=== PATIENT | female | born 1940 | race Caucasian/White ===

== ENCOUNTER 2019-02-22 16:38 | Inpatient (IN) ==
[2019-02-22] MEDS ORDERED: Ipratropium/Albuterol Neb 3 ML IH PRN (19:26)
[2019-02-22] MEDS ORDERED: Mag Hydrox/Al Hydrox/Simeth 30 ML UDC PO PRN (19:33)
[2019-02-22] MEDS ORDERED: Melatonin 3 MG TABLET PO PRN (19:34)
[2019-02-22] MEDS ORDERED: Menthol 9.1 MG LOZENGE PO PRN (19:35)
[2019-02-22] MEDS ORDERED: Furosemide 40 MG TABLET PO SCH (21:00)
[2019-02-22] MEDS ORDERED: VANCOMYCIN HCL 125 MG PO SCH (21:00)
[2019-02-22] MEDS: Budesonide/Formoterol 80/4.5 1 PUFF INH IH SCH (21:11)
[2019-02-22] MEDS: Acetaminophen 325 MG TABLET PO PRN (22:10)
[2019-02-23 05:58] LABS: Basophils % 0.3 %; Eosinophils # 0.1 K/mcL (0.0-0.6); Eosinophils % 1.5 %; Hematocrit 31.2 % (35.3-44.9); Hemoglobin 9.7 g/dL (11.5-15.4); Immature Granulocytes % 6.1 % (0-4); Lymphocytes # 1.4 K/mcL (0.6-4.6); Mean Corpuscular HGB Conc 31.1 g/dL (31.6-35.5); Mean Corpuscular Hemoglobin 27.2 pg (28.0-33.3); Mean Corpuscular Volume 87.4 fL (83.0-100.0); Mean Platelet Volume 10.2 fL (9.4-12.4); Neutrophils # 6.4 K/mcL (1.6-8.9); Platelet Count 324 K/mcL (140-400); Red Blood Count 3.57 M/mcL (3.82-4.97); Red Cell Distribution Width 15.6 % (11.5-14.5); Segmented Neutrophils % 67.1 %; White Blood Count 9.6 K/mcL (4.3-11.1)
[2019-02-23 06:26] LABS: Calcium 8.1 mg/dL (8.6-10.3); Potassium 3.9 mEq/L (3.5-5.1)
[2019-02-23] MEDS: Budesonide/Formoterol 80/4.5 1 PUFF INH IH SCH ×2 (08:17→19:35)
[2019-02-23] MEDS: Furosemide 40 MG TABLET PO SCH ×2 (08:18→16:43)
[2019-02-23] MEDS: Lactobacillus 1 EACH CAP.SPRINK PO SCH ×2 (08:18→19:33)
[2019-02-23] MEDS: Aspirin Enteric Coated 81 MG Tablet PO SCH (08:18)
[2019-02-23] MEDS: amLODIPine 5 MG TABLET PO SCH (08:18)
[2019-02-23] MEDS: *HR* Rivaroxaban 10 MG TABLET PO SCH (08:18)
[2019-02-23] MEDS: Metoprolol XL (24 HR) Succ 50 MG TAB.ER.24H PO SCH (08:19)
[2019-02-23] MEDS: VANCOMYCIN HCL 125 MG PO SCH ×5 (08:19→19:34)
[2019-02-23] MEDS: Isosorbide MONOnitrate (24 HR) 60 MG TAB.ER.24H PO SCH (08:19)
[2019-02-23] MEDS: Acetaminophen 325 MG TABLET PO PRN (19:33)
[2019-02-23] MEDS: Ascorbic Acid 500 MG TABLET PO SCH (19:33)
[2019-02-24] MEDS: Furosemide 40 MG TABLET PO SCH ×2 (05:27→16:23)
[2019-02-24 05:39] LABS: Alanine Aminotransferase 21 Units/L (7-52); Albumin 2.5 g/dL (3.5-5.7); Alkaline Phosphatase 83 Units/L (34-104); Aspartate Amino Transferase 37 Units/L (13-39); BUN/Creatinine Ratio 15 (6-26); Bilirubin,Total 0.4 mg/dL (0.3-1.0); Blood Urea Nitrogen 14 mg/dL (8-23); Calcium 8.1 mg/dL (8.6-10.3); Carbon Dioxide 35 mEq/L (23-29); Chloride 96 mEq/L (98-107); Globulin 2.4 g/dL (2.4-3.5); Glucose 116 mg/dL (70-105); Osmolality,Calculated 287 (280-300); Potassium 3.7 mEq/L (3.5-5.1); Sodium 138 mEq/L (136-145); Total Protein 4.9 g/dL (6.4-8.9); eGFR For African Americans > 60 (> 60); eGFR For Non-African Americans 58 (> 60)
[2019-02-24] MEDS: Acetaminophen 325 MG TABLET PO PRN ×2 (06:23→21:31)
[2019-02-24] MEDS: Budesonide/Formoterol 80/4.5 1 PUFF INH IH SCH ×2 (07:55→21:31)
[2019-02-24] MEDS: Lactobacillus 1 EACH CAP.SPRINK PO SCH ×2 (08:06→21:30)
[2019-02-24] MEDS: *HR* Rivaroxaban 10 MG TABLET PO SCH (08:06)
[2019-02-24] MEDS: amLODIPine 5 MG TABLET PO SCH (08:06)
[2019-02-24] MEDS: Isosorbide MONOnitrate (24 HR) 60 MG TAB.ER.24H PO SCH (08:06)
[2019-02-24] MEDS: Metoprolol XL (24 HR) Succ 50 MG TAB.ER.24H PO SCH (08:06)
[2019-02-24] MEDS: VANCOMYCIN HCL 125 MG PO SCH ×4 (08:06→21:30)
[2019-02-24] MEDS: Ascorbic Acid 500 MG TABLET PO SCH ×2 (08:06→21:31)
[2019-02-24] MEDS: Aspirin Enteric Coated 81 MG Tablet PO SCH (08:06)
[2019-02-24] MEDS: Psyllium 1 PACKET POWD.PACK PO SCH (08:07)
[2019-02-24 11:37] LABS: % Iron Saturation 8 % (15-50); Iron 18 mcg/dL (50-170); Transferrin 163 mg/dL (203-362)
[2019-02-24 12:03] LABS: Vitamin B12 550 pg/mL (250-1100); Vitamin D 25 Hydroxy 10 ng/mL (30-80)
[2019-02-24] MEDS: Nitroglycerin 0.4 MG TAB.SUBL SL PRN ×2 (15:02→15:19)
[2019-02-25] MEDS: Furosemide 40 MG TABLET PO SCH ×2 (06:16→16:04)
[2019-02-25] MEDS: Ascorbic Acid 500 MG TABLET PO SCH ×2 (08:15→21:03)
[2019-02-25] MEDS: amLODIPine 5 MG TABLET PO SCH (08:15)
[2019-02-25] MEDS: Psyllium 1 PACKET POWD.PACK PO SCH (08:15)
[2019-02-25] MEDS: Isosorbide MONOnitrate (24 HR) 60 MG TAB.ER.24H PO SCH (08:15)
[2019-02-25] MEDS: Acetaminophen 325 MG TABLET PO PRN ×2 (08:15→21:05)
[2019-02-25] MEDS: Metoprolol XL (24 HR) Succ 50 MG TAB.ER.24H PO SCH (08:15)
[2019-02-25] MEDS: Aspirin Enteric Coated 81 MG Tablet PO SCH (08:15)
[2019-02-25] MEDS: *HR* Rivaroxaban 10 MG TABLET PO SCH (08:15)
[2019-02-25] MEDS: Lactobacillus 1 EACH CAP.SPRINK PO SCH ×2 (08:15→21:03)
[2019-02-25] MEDS: VANCOMYCIN HCL 125 MG PO SCH ×4 (08:16→21:04)
[2019-02-25] MEDS: Budesonide/Formoterol 80/4.5 1 PUFF INH IH SCH ×2 (08:50→20:25)
[2019-02-25] MEDS: Nitroglycerin 0.4 MG TAB.SUBL SL PRN ×4 (11:29→12:13)
[2019-02-25 11:51] LABS: Basophils % 0.2 %; Eosinophils % 0.2 %; Hematocrit 30.6 % (35.3-44.9); Hemoglobin 9.7 g/dL (11.5-15.4); Immature Granulocytes % 1.2 % (0-4); Lymphocytes % 5.2 %; Mean Corpuscular HGB Conc 31.7 g/dL (31.6-35.5); Mean Corpuscular Hemoglobin 27.2 pg (28.0-33.3); Mean Platelet Volume 9.9 fL (9.4-12.4); Monocytes # 1.5 K/mcL (0.0-1.3); Neutrophils # 16.2 K/mcL (1.6-8.9); Platelet Count 264 K/mcL (140-400); Red Blood Count 3.56 M/mcL (3.82-4.97); Red Cell Distribution Width 15.9 % (11.5-14.5); Segmented Neutrophils % 85.2 %
[2019-02-25 11:59] LABS: BUN/Creatinine Ratio 14 (6-26); Blood Urea Nitrogen 12 mg/dL (8-23); Carbon Dioxide 36 mEq/L (23-29); Chloride 91 mEq/L (98-107); Glucose 109 mg/dL (70-105); Magnesium 1.3 mg/dL (1.6-2.6); Osmolality,Calculated 278 (280-300); Potassium 3.5 mEq/L (3.5-5.1); Sodium 134 mEq/L (136-145); eGFR For African Americans > 60 (> 60); eGFR For Non-African Americans > 60 (> 60)
[2019-02-25] MEDS: levoFLOXacin 750 MG/150 ML 750 MG/150 ML BAG IVPB SCH (15:56)
[2019-02-26 06:10] LABS: Basophils % 0.3 %; Eosinophils # 0.1 K/mcL (0.0-0.6); Eosinophils % 0.7 %; Hematocrit 27.8 % (35.3-44.9); Hemoglobin 8.9 g/dL (11.5-15.4); Immature Granulocytes % 1.2 % (0-4); Lymphocytes % 8.9 %; Mean Corpuscular Hemoglobin 27.6 pg (28.0-33.3); Mean Corpuscular Volume 86.1 fL (83.0-100.0); Mean Platelet Volume 10.2 fL (9.4-12.4); Monocytes # 0.9 K/mcL (0.0-1.3); Monocytes % 8.1 %; Neutrophils # 8.9 K/mcL (1.6-8.9); Platelet Count 226 K/mcL (140-400); Red Blood Count 3.23 M/mcL (3.82-4.97); Red Cell Distribution Width 15.8 % (11.5-14.5); Segmented Neutrophils % 80.8 %; White Blood Count 11.1 K/mcL (4.3-11.1)
[2019-02-26] MEDS: Furosemide 40 MG TABLET PO SCH ×2 (06:30→17:07)
[2019-02-26] MEDS: Lactobacillus 1 EACH CAP.SPRINK PO SCH ×2 (07:42→20:12)
[2019-02-26] MEDS: Ascorbic Acid 500 MG TABLET PO SCH ×2 (07:42→20:12)
[2019-02-26] MEDS: VANCOMYCIN HCL 125 MG PO SCH ×4 (07:42→20:13)
[2019-02-26] MEDS: Isosorbide MONOnitrate (24 HR) 60 MG TAB.ER.24H PO SCH (07:43)
[2019-02-26] MEDS: Aspirin Enteric Coated 81 MG Tablet PO SCH (07:43)
[2019-02-26] MEDS: Psyllium 1 PACKET POWD.PACK PO SCH (07:43)
[2019-02-26] MEDS: Metoprolol XL (24 HR) Succ 50 MG TAB.ER.24H PO SCH (07:43)
[2019-02-26] MEDS: *HR* Rivaroxaban 10 MG TABLET PO SCH (07:43)
[2019-02-26] MEDS: amLODIPine 5 MG TABLET PO SCH (07:43)
[2019-02-26] MEDS: levoFLOXacin 750 MG/150 ML 750 MG/150 ML BAG IVPB SCH (09:43)
[2019-02-26] MEDS: Budesonide/Formoterol 80/4.5 1 PUFF INH IH SCH ×2 (09:55→20:25)
[2019-02-26] MEDS ORDERED: Ergocalciferol (VIT D2) 50,000 UNIT (1.25MG) CAP PO SCH (12:00)
[2019-02-26] MEDS ORDERED: Magnesium Oxide 400 MG TABLET PO SCH (13:00)
[2019-02-26] MEDS ORDERED: Racepinephrine Neb 0.5 ML VIAL IH ONE (13:32)
[2019-02-26] MEDS: Magnesium Oxide 400 MG TABLET PO SCH (20:11)
[2019-02-26] MEDS: Acetaminophen 325 MG TABLET PO PRN (20:11)
[2019-02-27] MEDS: Furosemide 40 MG TABLET PO SCH ×2 (06:05→17:42)
[2019-02-27 07:45] LABS: Hematocrit 31.3 % (35.3-44.9); Hemoglobin 9.9 g/dL (11.5-15.4); Mean Corpuscular HGB Conc 31.6 g/dL (31.6-35.5); Mean Corpuscular Hemoglobin 27.5 pg (28.0-33.3); Mean Corpuscular Volume 86.9 fL (83.0-100.0); Mean Platelet Volume 10.2 fL (9.4-12.4); Platelet Count 280 K/mcL (140-400); Red Cell Distribution Width 15.9 % (11.5-14.5)
[2019-02-27 07:55] LABS: BUN/Creatinine Ratio 11 (6-26); Blood Urea Nitrogen 11 mg/dL (8-23); Calcium 8.3 mg/dL (8.6-10.3); Carbon Dioxide 35 mEq/L (23-29); Chloride 92 mEq/L (98-107); Glucose 101 mg/dL (70-105); Magnesium 1.6 mg/dL (1.6-2.6); Osmolality,Calculated 280 (280-300); Potassium 3.9 mEq/L (3.5-5.1); Sodium 135 mEq/L (136-145); eGFR For African Americans > 60 (> 60); eGFR For Non-African Americans 53 (> 60)
[2019-02-27] MEDS: Iron Sucrose Complex 200 MG in 0.9 % Sodium Chloride 100 ML IVPB SCH (09:06)
[2019-02-27] MEDS: VANCOMYCIN HCL 125 MG PO SCH ×4 (09:31→21:12)
[2019-02-27] MEDS: Isosorbide MONOnitrate (24 HR) 60 MG TAB.ER.24H PO SCH (09:32)
[2019-02-27] MEDS: Lactobacillus 1 EACH CAP.SPRINK PO SCH ×2 (09:32→21:12)
[2019-02-27] MEDS: Metoprolol XL (24 HR) Succ 50 MG TAB.ER.24H PO SCH (09:32)
[2019-02-27] MEDS: *HR* Rivaroxaban 10 MG TABLET PO SCH (09:32)
[2019-02-27] MEDS: Magnesium Oxide 400 MG TABLET PO SCH ×2 (09:32→21:12)
[2019-02-27] MEDS: Ascorbic Acid 500 MG TABLET PO SCH ×2 (09:32→21:13)
[2019-02-27] MEDS: Psyllium 1 PACKET POWD.PACK PO SCH (09:33)
[2019-02-27] MEDS: Aspirin Enteric Coated 81 MG Tablet PO SCH (09:33)
[2019-02-27] MEDS: Budesonide/Formoterol 80/4.5 1 PUFF INH IH SCH ×2 (11:03→20:17)
[2019-02-27] MEDS: levoFLOXacin 750 MG/150 ML 750 MG/150 ML BAG IVPB SCH (11:33)
[2019-02-27] MEDS: Acetaminophen 325 MG TABLET PO PRN (21:13)
[2019-02-28] MEDS: Furosemide 40 MG TABLET PO SCH ×2 (06:50→16:52)
[2019-02-28] MEDS: Cholecalciferol (D-3) 1,000 UNIT (25MCG) TABLET PO SCH (08:06)
[2019-02-28] MEDS: VANCOMYCIN HCL 125 MG PO SCH ×4 (08:07→21:10)
[2019-02-28] MEDS: *HR* Rivaroxaban 10 MG TABLET PO SCH (08:08)
[2019-02-28] MEDS: Lactobacillus 1 EACH CAP.SPRINK PO SCH ×2 (08:09→21:10)
[2019-02-28] MEDS: Metoprolol XL (24 HR) Succ 50 MG TAB.ER.24H PO SCH (08:09)
[2019-02-28] MEDS: Isosorbide MONOnitrate (24 HR) 60 MG TAB.ER.24H PO SCH (08:09)
[2019-02-28] MEDS: Ascorbic Acid 500 MG TABLET PO SCH ×2 (08:09→21:10)
[2019-02-28] MEDS: Magnesium Oxide 400 MG TABLET PO SCH ×2 (08:09→21:10)
[2019-02-28] MEDS: levoFLOXacin 750 MG/150 ML 750 MG/150 ML BAG IVPB SCH (08:10)
[2019-02-28] MEDS: Aspirin Enteric Coated 81 MG Tablet PO SCH (08:10)
[2019-02-28] MEDS: Psyllium 1 PACKET POWD.PACK PO SCH (08:11)
[2019-02-28] MEDS: Iron Sucrose Complex 200 MG in 0.9 % Sodium Chloride 100 ML IVPB SCH (09:32)
[2019-02-28] MEDS: Budesonide/Formoterol 80/4.5 1 PUFF INH IH SCH ×2 (11:06→21:10)
[2019-02-28] MEDS: Acetaminophen 325 MG TABLET PO PRN (21:10)
[2019-03-01] MEDS: Furosemide 40 MG TABLET PO SCH (07:04)
[2019-03-01] MEDS: Cholecalciferol (D-3) 1,000 UNIT (25MCG) TABLET PO SCH (08:51)
[2019-03-01] MEDS: Ascorbic Acid 500 MG TABLET PO SCH (08:51)
[2019-03-01] MEDS: VANCOMYCIN HCL 125 MG PO SCH ×2 (08:51→13:22)
[2019-03-01] MEDS: Magnesium Oxide 400 MG TABLET PO SCH (08:52)
[2019-03-01] MEDS: Isosorbide MONOnitrate (24 HR) 60 MG TAB.ER.24H PO SCH (08:52)
[2019-03-01] MEDS: Metoprolol XL (24 HR) Succ 50 MG TAB.ER.24H PO SCH (08:52)
[2019-03-01] MEDS: *HR* Rivaroxaban 10 MG TABLET PO SCH (08:52)
[2019-03-01] MEDS: levoFLOXacin 750 MG/150 ML 750 MG/150 ML BAG IVPB SCH ×2 (08:53→09:13)
[2019-03-01] MEDS: Lactobacillus 1 EACH CAP.SPRINK PO SCH (08:53)
[2019-03-01] MEDS: Aspirin Enteric Coated 81 MG Tablet PO SCH (08:53)
[2019-03-01] MEDS: Psyllium 1 PACKET POWD.PACK PO SCH (08:53)
[2019-03-01 09:08] VITALS: BP 134/82
[2019-03-01] MEDS: Budesonide/Formoterol 80/4.5 1 PUFF INH IH SCH (09:54)
[2019-03-01] MEDS: Iron Sucrose Complex 200 MG in 0.9 % Sodium Chloride 100 ML IVPB SCH (12:31)
[2019-03-01] MEDS ORDERED: levoFLOXacin 500 MG TABLET PO SCH (12:35)
[2019-03-01] MEDS ORDERED: Albuterol 2.5 MG/3 ML NEBULIZER IH SCH (15:00)
[2019-03-01] MEDS ORDERED: NON-FORMULARY MEDICATION 1 EACH EACH (Fluticasone Propion/Salmeterol [Wixela 250-50 Inhub] IH SCH (21:00)
[2019-03-02] MEDS ORDERED: levoFLOXacin 500 MG TABLET PO SCH (09:00)
== END 2019-03-01 15:31 | disposition home health service (06) | DRG 945 ==
LOC: INPGRE 17:41

== ENCOUNTER 2019-05-08 11:11 | Inpatient (IN) ==
[2019-05-08] MEDS ORDERED: Nitroglycerin 0.4 MG TAB.SUBL SL PRN (21:49)
[2019-05-08] MEDS ORDERED: Albuterol 2.5 MG/3 ML NEBULIZER IH PRN (22:46)
[2019-05-08] MEDS: Vancomycin Oral Soln 125 MG/2.5 ML UDC PO SCH (23:12)
[2019-05-08] MEDS: Magnesium Oxide 400 MG TABLET PO SCH (23:12)
[2019-05-09] MEDS ORDERED: Ipratropium/Albuterol Neb 3 ML IH PRN
[2019-05-09 06:10] LABS: Basophils % 0.2 %; Eosinophils # 0.1 K/mcL (0.0-0.6); Eosinophils % 0.8 %; Hematocrit 33.8 % (35.3-44.9); Hemoglobin 10.3 g/dL (11.5-15.4); Immature Granulocytes % 1.7 % (0-4); Lymphocytes # 1.2 K/mcL (0.6-4.6); Mean Corpuscular HGB Conc 30.5 g/dL (31.6-35.5); Mean Corpuscular Hemoglobin 27.9 pg (28.0-33.3); Mean Corpuscular Volume 91.6 fL (83.0-100.0); Mean Platelet Volume 11.1 fL (9.4-12.4); Monocytes # 0.6 K/mcL (0.0-1.3); Monocytes % 7.4 %; Neutrophils # 6.4 K/mcL (1.6-8.9); Platelet Count 200 K/mcL (140-400); Red Blood Count 3.69 M/mcL (3.82-4.97); Red Cell Distribution Width 15.4 % (11.5-14.5); Segmented Neutrophils % 75.9 %; White Blood Count 8.4 K/mcL (4.3-11.1)
[2019-05-09 06:33] LABS: BUN/Creatinine Ratio 20 (6-26); Blood Urea Nitrogen 14 mg/dL (8-23); Calcium 8.7 mg/dL (8.6-10.3); Carbon Dioxide 43 mEq/L (23-29); Chloride 92 mEq/L (98-107); Glucose 83 mg/dL (70-105); Osmolality,Calculated 286 (280-300); Potassium 3.7 mEq/L (3.5-5.1); Sodium 138 mEq/L (136-145); eGFR For African Americans > 60 (> 60); eGFR For Non-African Americans > 60 (> 60)
[2019-05-09 07:39] LABS: VBG HCO3 42 mEq/L (21-27); VBG PCO2 62 mmHg (41-51); VBG PH 7.44 pH Units (7.32-7.42); VBG PO2 64 mmHg (25-50)
[2019-05-09] MEDS ORDERED: Furosemide 40 MG TABLET PO SCH (09:00)
[2019-05-09] MEDS: *HR* Rivaroxaban 10 MG TABLET PO SCH (09:58)
[2019-05-09] MEDS: Metoprolol XL (24 HR) Succ 50 MG TAB.ER.24H PO SCH (09:58)
[2019-05-09] MEDS: Aspirin Enteric Coated 81 MG Tablet PO SCH (09:58)
[2019-05-09] MEDS: Magnesium Oxide 400 MG TABLET PO SCH ×3 (09:59→20:06)
[2019-05-09] MEDS: metOLazone 5 MG TABLET PO STA ×2 (09:59→10:08)
[2019-05-09] MEDS: Isosorbide MONOnitrate (24 HR) 60 MG TAB.ER.24H PO SCH (09:59)
[2019-05-09] MEDS: amLODIPine 5 MG TABLET PO SCH (09:59)
[2019-05-09] MEDS: predniSONE 20 MG TABLET PO SCH (09:59)
[2019-05-09] MEDS: Vancomycin Oral Soln 125 MG/2.5 ML UDC PO SCH ×4 (10:00→20:05)
[2019-05-09] MEDS: Furosemide 20 MG/2 ML VIAL IVP SCH ×2 (11:35→20:05)
[2019-05-09] MEDS: Tiotropium 18 MCG inhalation IH SCH (11:35)
[2019-05-09] MEDS: Budesonide/Formoterol 80/4.5 1 PUFF INH IH SCH ×2 (11:36→22:10)
[2019-05-09] MEDS: Ipratropium/Albuterol Neb 3 ML IH SCH ×3 (11:38→18:43)
[2019-05-10] MEDS: Ipratropium/Albuterol Neb 3 ML IH SCH ×6 (00:02→18:40)
[2019-05-10] MEDS: Tiotropium 18 MCG inhalation IH SCH (07:07)
[2019-05-10] MEDS: Budesonide/Formoterol 80/4.5 1 PUFF INH IH SCH ×2 (07:10→21:35)
[2019-05-10] MEDS: Magnesium Oxide 400 MG TABLET PO SCH ×3 (08:50→20:54)
[2019-05-10] MEDS: amLODIPine 5 MG TABLET PO SCH (08:50)
[2019-05-10] MEDS: *HR* Rivaroxaban 10 MG TABLET PO SCH (08:50)
[2019-05-10] MEDS: Isosorbide MONOnitrate (24 HR) 60 MG TAB.ER.24H PO SCH (08:50)
[2019-05-10] MEDS: Aspirin Enteric Coated 81 MG Tablet PO SCH (08:50)
[2019-05-10] MEDS: predniSONE 20 MG TABLET PO SCH (08:50)
[2019-05-10] MEDS: Furosemide 20 MG/2 ML VIAL IVP SCH ×2 (08:51→20:50)
[2019-05-10] MEDS: Vancomycin Oral Soln 125 MG/2.5 ML UDC PO SCH ×4 (08:51→20:54)
[2019-05-10] MEDS: Metoprolol XL (24 HR) Succ 50 MG TAB.ER.24H PO SCH (08:51)
[2019-05-10 10:14] LABS: Hematocrit 39.1 % (35.3-44.9); Hemoglobin 11.7 g/dL (11.5-15.4); Mean Corpuscular HGB Conc 29.9 g/dL (31.6-35.5); Mean Corpuscular Hemoglobin 27.7 pg (28.0-33.3); Mean Corpuscular Volume 92.7 fL (83.0-100.0); Mean Platelet Volume 10.9 fL (9.4-12.4); Platelet Count 269 K/mcL (140-400); Red Blood Count 4.22 M/mcL (3.82-4.97); Red Cell Distribution Width 15.5 % (11.5-14.5); White Blood Count 11.8 K/mcL (4.3-11.1)
[2019-05-10 10:36] LABS: BUN/Creatinine Ratio 15 (6-26); Blood Urea Nitrogen 13 mg/dL (8-23); Calcium 9.1 mg/dL (8.6-10.3); Carbon Dioxide 39 mEq/L (23-29); Chloride 91 mEq/L (98-107); Glucose 70 mg/dL (70-105); Magnesium 2.3 mg/dL (1.6-2.6); Osmolality,Calculated 281 (280-300); Sodium 136 mEq/L (136-145); eGFR For African Americans > 60 (> 60); eGFR For Non-African Americans > 60 (> 60)
[2019-05-10 13:09] LABS: INR 1.9; Prothrombin Time 21.6 Seconds (9.4-12.1)
[2019-05-10 13:11] LABS: Activated Partial Thrombo Time 38.8 Seconds (26.0-36.0)
[2019-05-10] MEDS ORDERED: Water for inj. (sterile) 10 ML ONE (20:41)
[2019-05-11] MEDS: Ipratropium/Albuterol Neb 3 ML IH SCH ×6 (00:35→21:10)
[2019-05-11] MEDS: Magnesium Oxide 400 MG TABLET PO SCH ×3 (09:22→22:29)
[2019-05-11] MEDS: predniSONE 20 MG TABLET PO SCH (09:22)
[2019-05-11] MEDS: amLODIPine 5 MG TABLET PO SCH (09:22)
[2019-05-11] MEDS: Aspirin Enteric Coated 81 MG Tablet PO SCH (09:23)
[2019-05-11] MEDS: *HR* Rivaroxaban 10 MG TABLET PO SCH (09:23)
[2019-05-11] MEDS: Metoprolol XL (24 HR) Succ 50 MG TAB.ER.24H PO SCH (09:23)
[2019-05-11] MEDS: Isosorbide MONOnitrate (24 HR) 60 MG TAB.ER.24H PO SCH (09:23)
[2019-05-11] MEDS: Vancomycin Oral Soln 125 MG/2.5 ML UDC PO SCH ×4 (09:24→22:29)
[2019-05-11] MEDS: Furosemide 20 MG/2 ML VIAL IVP SCH (09:24)
[2019-05-11] MEDS: Tiotropium 18 MCG inhalation IH SCH (09:25)
[2019-05-11] MEDS: Budesonide/Formoterol 80/4.5 1 PUFF INH IH SCH ×2 (09:25→21:10)
[2019-05-11] MEDS: Furosemide 20 MG TABLET PO SCH (17:59)
[2019-05-11] MEDS: acetaZOLAMIDE 250 MG TABLET PO SCH (22:29)
[2019-05-12] MEDS: Ipratropium/Albuterol Neb 3 ML IH SCH ×6 (00:31→20:13)
[2019-05-12] MEDS: Tiotropium 18 MCG inhalation IH SCH (07:18)
[2019-05-12] MEDS: Budesonide/Formoterol 80/4.5 1 PUFF INH IH SCH ×2 (07:20→20:13)
[2019-05-12] MEDS: acetaZOLAMIDE 250 MG TABLET PO SCH ×2 (09:05→22:49)
[2019-05-12] MEDS: Isosorbide MONOnitrate (24 HR) 60 MG TAB.ER.24H PO SCH (09:05)
[2019-05-12] MEDS: Metoprolol XL (24 HR) Succ 50 MG TAB.ER.24H PO SCH (09:05)
[2019-05-12] MEDS: Furosemide 20 MG TABLET PO SCH ×2 (09:05→15:53)
[2019-05-12] MEDS: Magnesium Oxide 400 MG TABLET PO SCH ×3 (09:05→22:50)
[2019-05-12] MEDS: *HR* Rivaroxaban 10 MG TABLET PO SCH (09:05)
[2019-05-12] MEDS: amLODIPine 5 MG TABLET PO SCH (09:05)
[2019-05-12] MEDS: predniSONE 20 MG TABLET PO SCH (09:05)
[2019-05-12] MEDS: Aspirin Enteric Coated 81 MG Tablet PO SCH (09:05)
[2019-05-12] MEDS: Vancomycin Oral Soln 125 MG/2.5 ML UDC PO SCH ×4 (09:06→22:49)
[2019-05-13] MEDS: Ipratropium/Albuterol Neb 3 ML IH SCH ×4 (00:17→13:02)
[2019-05-13 05:28] LABS: Basophils % 0.1 %; Eosinophils # 0.2 K/mcL (0.0-0.6); Eosinophils % 1.9 %; Hemoglobin 9.6 g/dL (11.5-15.4); Lymphocytes # 1.3 K/mcL (0.6-4.6); Lymphocytes % 13.2 %; Mean Corpuscular Hemoglobin 27.7 pg (28.0-33.3); Mean Corpuscular Volume 92.2 fL (83.0-100.0); Mean Platelet Volume 11.5 fL (9.4-12.4); Monocytes # 0.8 K/mcL (0.0-1.3); Monocytes % 8.6 %; Neutrophils # 7.3 K/mcL (1.6-8.9); Platelet Count 179 K/mcL (140-400); Red Blood Count 3.47 M/mcL (3.82-4.97); Red Cell Distribution Width 15.7 % (11.5-14.5); Segmented Neutrophils % 75.2 %; White Blood Count 9.6 K/mcL (4.3-11.1)
[2019-05-13 05:41] LABS: BUN/Creatinine Ratio 11 (6-26); Blood Urea Nitrogen 10 mg/dL (8-23); Calcium 8.5 mg/dL (8.6-10.3); Carbon Dioxide 31 mEq/L (23-29); Chloride 101 mEq/L (98-107); Glucose 93 mg/dL (70-105); Magnesium 2.4 mg/dL (1.6-2.6); Osmolality,Calculated 285 (280-300); Potassium 3.7 mEq/L (3.5-5.1); Sodium 138 mEq/L (136-145); eGFR For African Americans > 60 (> 60); eGFR For Non-African Americans > 60 (> 60)
[2019-05-13] MEDS: Budesonide/Formoterol 80/4.5 1 PUFF INH IH SCH ×2 (07:18→22:14)
[2019-05-13] MEDS: Tiotropium 18 MCG inhalation IH SCH (07:18)
[2019-05-13] MEDS: amLODIPine 5 MG TABLET PO SCH (08:21)
[2019-05-13] MEDS: Isosorbide MONOnitrate (24 HR) 60 MG TAB.ER.24H PO SCH (08:21)
[2019-05-13] MEDS: *HR* Rivaroxaban 10 MG TABLET PO SCH (08:21)
[2019-05-13] MEDS: Vancomycin Oral Soln 125 MG/2.5 ML UDC PO SCH ×4 (08:21→21:21)
[2019-05-13] MEDS: predniSONE 20 MG TABLET PO SCH (08:22)
[2019-05-13] MEDS: acetaZOLAMIDE 250 MG TABLET PO SCH (08:22)
[2019-05-13] MEDS: Furosemide 20 MG TABLET PO SCH ×2 (08:22→16:14)
[2019-05-13] MEDS: Metoprolol XL (24 HR) Succ 50 MG TAB.ER.24H PO SCH (08:22)
[2019-05-13] MEDS: Aspirin Enteric Coated 81 MG Tablet PO SCH (08:22)
[2019-05-13] MEDS: Magnesium Oxide 400 MG TABLET PO SCH ×4 (08:22→21:20)
[2019-05-13] MEDS ORDERED: Ipratropium/Albuterol Neb 3 ML IH PRN (13:39)
[2019-05-14] MEDS: Furosemide 20 MG TABLET PO SCH ×2 (09:03→16:18)
[2019-05-14] MEDS: Aspirin Enteric Coated 81 MG Tablet PO SCH (09:03)
[2019-05-14] MEDS: *HR* Rivaroxaban 10 MG TABLET PO SCH (09:04)
[2019-05-14] MEDS: Magnesium Oxide 400 MG TABLET PO SCH ×3 (09:04→22:22)
[2019-05-14] MEDS: Metoprolol XL (24 HR) Succ 50 MG TAB.ER.24H PO SCH (09:04)
[2019-05-14] MEDS: Isosorbide MONOnitrate (24 HR) 60 MG TAB.ER.24H PO SCH (09:04)
[2019-05-14] MEDS: amLODIPine 5 MG TABLET PO SCH (09:04)
[2019-05-14] MEDS: predniSONE 20 MG TABLET PO SCH (09:04)
[2019-05-14] MEDS: Vancomycin Oral Soln 125 MG/2.5 ML UDC PO SCH ×4 (09:05→22:23)
[2019-05-14] MEDS: Budesonide/Formoterol 80/4.5 1 PUFF INH IH SCH ×2 (10:21→21:41)
[2019-05-14] MEDS: Tiotropium 18 MCG inhalation IH SCH (10:41)
[2019-05-15 05:36] LABS: Basophils % 0.2 %; Eosinophils # 0.2 K/mcL (0.0-0.6); Hematocrit 30.2 % (35.3-44.9); Hemoglobin 9.3 g/dL (11.5-15.4); Immature Granulocytes % 0.8 % (0-4); Lymphocytes # 1.4 K/mcL (0.6-4.6); Lymphocytes % 13.7 %; Mean Corpuscular HGB Conc 30.8 g/dL (31.6-35.5); Mean Corpuscular Hemoglobin 27.8 pg (28.0-33.3); Mean Corpuscular Volume 90.4 fL (83.0-100.0); Mean Platelet Volume 11.8 fL (9.4-12.4); Monocytes # 0.8 K/mcL (0.0-1.3); Monocytes % 8.1 %; Neutrophils # 7.5 K/mcL (1.6-8.9); Platelet Count 166 K/mcL (140-400); Red Blood Count 3.34 M/mcL (3.82-4.97); Red Cell Distribution Width 15.7 % (11.5-14.5); Segmented Neutrophils % 75.2 %; White Blood Count 9.9 K/mcL (4.3-11.1)
[2019-05-15] MEDS: Isosorbide MONOnitrate (24 HR) 60 MG TAB.ER.24H PO SCH (07:47)
[2019-05-15] MEDS: amLODIPine 5 MG TABLET PO SCH (07:47)
[2019-05-15] MEDS: Furosemide 20 MG TABLET PO SCH ×2 (07:47→15:45)
[2019-05-15] MEDS: Metoprolol XL (24 HR) Succ 50 MG TAB.ER.24H PO SCH ×2 (07:48→13:21)
[2019-05-15] MEDS: Aspirin Enteric Coated 81 MG Tablet PO SCH (08:46)
[2019-05-15] MEDS: Magnesium Oxide 400 MG TABLET PO SCH ×3 (08:47→20:01)
[2019-05-15] MEDS: *HR* Rivaroxaban 10 MG TABLET PO SCH (08:47)
[2019-05-15] MEDS: Vancomycin Oral Soln 125 MG/2.5 ML UDC PO SCH ×4 (08:48→20:02)
[2019-05-15] MEDS: Budesonide/Formoterol 80/4.5 1 PUFF INH IH SCH ×2 (11:53→21:41)
[2019-05-15] MEDS: Tiotropium 18 MCG inhalation IH SCH (11:54)
[2019-05-16] MEDS: amLODIPine 5 MG TABLET PO SCH (07:57)
[2019-05-16] MEDS: Isosorbide MONOnitrate (24 HR) 60 MG TAB.ER.24H PO SCH (07:58)
[2019-05-16] MEDS: Aspirin Enteric Coated 81 MG Tablet PO SCH (07:58)
[2019-05-16] MEDS: Furosemide 20 MG TABLET PO SCH ×2 (07:58→16:51)
[2019-05-16] MEDS: Magnesium Oxide 400 MG TABLET PO SCH ×2 (07:59→14:20)
[2019-05-16] MEDS: Tiotropium 18 MCG inhalation IH SCH (07:59)
[2019-05-16] MEDS: *HR* Rivaroxaban 10 MG TABLET PO SCH (07:59)
[2019-05-16] MEDS: Metoprolol XL (24 HR) Succ 50 MG TAB.ER.24H PO SCH (07:59)
[2019-05-16] MEDS: Vancomycin Oral Soln 125 MG/2.5 ML UDC PO SCH ×2 (08:00→12:47)
[2019-05-16] MEDS: Budesonide/Formoterol 80/4.5 1 PUFF INH IH SCH (08:00)
[2019-05-16 12:52] VITALS: BP 119/75
== END 2019-05-16 17:45 | disposition home health service (06) | DRG 189 ==
LOC: INPGRE 20:11
PROVIDERS: ADMIT Family Medicine; ATTEND Family Medicine

== ENCOUNTER 2019-07-23 15:45 | Inpatient (IN) ==
[2019-07-24] MEDS ORDERED: Nitroglycerin 0.4 MG TAB.SUBL SL PRN (19:52)
[2019-07-24] MEDS: Mirtazapine 15 MG TABLET PO SCH (21:32)
[2019-07-25 06:16] LABS: Basophils % 0.1 %; Eosinophils % 0.4 %; Hematocrit 34.5 % (35.3-44.9); Hemoglobin 10.6 g/dL (11.5-15.4); Immature Granulocytes % 1.5 % (0-4); Lymphocytes # 1.2 K/mcL (0.6-4.6); Lymphocytes % 14.3 %; Mean Corpuscular HGB Conc 30.7 g/dL (31.6-35.5); Mean Corpuscular Hemoglobin 26.4 pg (28.0-33.3); Mean Corpuscular Volume 85.8 fL (83.0-100.0); Mean Platelet Volume 10.4 fL (9.4-12.4); Monocytes # 0.8 K/mcL (0.0-1.3); Monocytes % 9.9 %; Neutrophils # 6.1 K/mcL (1.6-8.9); Platelet Count 225 K/mcL (140-400); Red Blood Count 4.02 M/mcL (3.82-4.97); Red Cell Distribution Width 16.6 % (11.5-14.5); Segmented Neutrophils % 73.8 %; White Blood Count 8.3 K/mcL (4.3-11.1)
[2019-07-25 07:16] LABS: BUN/Creatinine Ratio 24 (6-26); Blood Urea Nitrogen 26 mg/dL (8-23); Calcium 8.2 mg/dL (8.6-10.3); Carbon Dioxide 31 mEq/L (23-29); Chloride 105 mEq/L (98-107); Glucose 79 mg/dL (70-105); Osmolality,Calculated 290 (280-300); Potassium 4.3 mEq/L (3.5-5.1); Sodium 138 mEq/L (136-145); eGFR For African Americans > 60 (> 60); eGFR For Non-African Americans 50 (> 60)
[2019-07-25] MEDS: predniSONE 10 MG TABLET PO SCH (08:40)
[2019-07-25] MEDS: Aspirin Enteric Coated 81 MG Tablet PO SCH (08:40)
[2019-07-25] MEDS: PARoxetine 20 MG TABLET PO SCH (08:40)
[2019-07-25] MEDS: *HR* Rivaroxaban 10 MG TABLET PO SCH (08:40)
[2019-07-25] MEDS: Isosorbide MONOnitrate (24 HR) 60 MG TAB.ER.24H PO SCH (08:41)
[2019-07-25] MEDS: Metoprolol XL (24 HR) Succ 50 MG TAB.ER.24H PO SCH (08:41)
[2019-07-25] MEDS: allopurinoL 100 MG TABLET PO SCH (08:41)
[2019-07-25] MEDS ORDERED: Furosemide 20 MG TABLET PO SCH (12:00)
[2019-07-25] MEDS: Budesonide/Formoterol 160/4.5 1 PUFF INH IH SCH ×2 (14:28→17:15)
[2019-07-25] MEDS: Ipratropium Neb 0.5 MG NEBULIZER IH SCH ×2 (17:16→21:58)
[2019-07-25] MEDS: Mirtazapine 15 MG TABLET PO SCH (22:07)
[2019-07-26] MEDS: Ipratropium Neb 0.5 MG NEBULIZER IH SCH ×2 (04:00→14:16)
[2019-07-26 05:32] LABS: BUN/Creatinine Ratio 26 (6-26); Blood Urea Nitrogen 22 mg/dL (8-23); Calcium 8.2 mg/dL (8.6-10.3); Carbon Dioxide 30 mEq/L (23-29); Chloride 105 mEq/L (98-107); Glucose 77 mg/dL (70-105); Osmolality,Calculated 288 (280-300); Potassium 4.5 mEq/L (3.5-5.1); Sodium 138 mEq/L (136-145); eGFR For African Americans > 60 (> 60); eGFR For Non-African Americans > 60 (> 60)
[2019-07-26] MEDS: PARoxetine 20 MG TABLET PO SCH (08:55)
[2019-07-26] MEDS: Aspirin Enteric Coated 81 MG Tablet PO SCH (08:55)
[2019-07-26] MEDS: *HR* Rivaroxaban 10 MG TABLET PO SCH (08:55)
[2019-07-26] MEDS: Isosorbide MONOnitrate (24 HR) 60 MG TAB.ER.24H PO SCH (08:55)
[2019-07-26] MEDS: Furosemide 20 MG TABLET PO SCH (08:55)
[2019-07-26] MEDS: allopurinoL 100 MG TABLET PO SCH (08:55)
[2019-07-26] MEDS: predniSONE 10 MG TABLET PO SCH (08:56)
[2019-07-26] MEDS: Metoprolol XL (24 HR) Succ 50 MG TAB.ER.24H PO SCH (08:56)
[2019-07-26] MEDS ORDERED: Azithromycin 250 MG TABLET PO SCH (09:45)
[2019-07-26] MEDS: Ipratropium 1 PUFF INHALER IH SCH ×3 (10:26→20:10)
[2019-07-26] MEDS: Budesonide/Formoterol 160/4.5 1 PUFF INH IH SCH ×2 (10:30→20:11)
[2019-07-26] MEDS ORDERED: Azithromycin 250 MG TABLET PO ONE (11:00)
[2019-07-26] MEDS: Mirtazapine 15 MG TABLET PO SCH (21:18)
[2019-07-27] MEDS: Ipratropium 1 PUFF INHALER IH SCH ×5 (00:03→22:34)
[2019-07-27] MEDS: *HR* Rivaroxaban 10 MG TABLET PO SCH (08:40)
[2019-07-27] MEDS: Metoprolol XL (24 HR) Succ 50 MG TAB.ER.24H PO SCH (08:40)
[2019-07-27] MEDS: PARoxetine 20 MG TABLET PO SCH (08:40)
[2019-07-27] MEDS: Aspirin Enteric Coated 81 MG Tablet PO SCH (08:40)
[2019-07-27] MEDS: allopurinoL 100 MG TABLET PO SCH (08:41)
[2019-07-27] MEDS: Furosemide 20 MG TABLET PO SCH (08:41)
[2019-07-27] MEDS: Azithromycin 250 MG TABLET PO SCH (08:41)
[2019-07-27] MEDS: predniSONE 10 MG TABLET PO SCH (08:41)
[2019-07-27] MEDS: Isosorbide MONOnitrate (24 HR) 60 MG TAB.ER.24H PO SCH (08:41)
[2019-07-27] MEDS: Budesonide/Formoterol 160/4.5 1 PUFF INH IH SCH ×2 (09:32→22:34)
[2019-07-27] MEDS: Mirtazapine 15 MG TABLET PO SCH (21:01)
[2019-07-28] MEDS: Ipratropium 1 PUFF INHALER IH SCH ×4 (04:35→20:51)
[2019-07-28 06:05] LABS: BUN/Creatinine Ratio 21 (6-26); Blood Urea Nitrogen 18 mg/dL (8-23); Calcium 8.1 mg/dL (8.6-10.3); Carbon Dioxide 28 mEq/L (23-29); Chloride 104 mEq/L (98-107); Glucose 75 mg/dL (70-105); Osmolality,Calculated 287 (280-300); Potassium 4.7 mEq/L (3.5-5.1); Sodium 138 mEq/L (136-145); eGFR For African Americans > 60 (> 60); eGFR For Non-African Americans > 60 (> 60)
[2019-07-28] MEDS: Aspirin Enteric Coated 81 MG Tablet PO SCH (08:25)
[2019-07-28] MEDS: allopurinoL 100 MG TABLET PO SCH (08:25)
[2019-07-28] MEDS: Azithromycin 250 MG TABLET PO SCH (08:25)
[2019-07-28] MEDS: Furosemide 20 MG TABLET PO SCH (08:25)
[2019-07-28] MEDS: predniSONE 10 MG TABLET PO SCH (08:26)
[2019-07-28] MEDS: Isosorbide MONOnitrate (24 HR) 60 MG TAB.ER.24H PO SCH (08:27)
[2019-07-28] MEDS: PARoxetine 20 MG TABLET PO SCH (08:27)
[2019-07-28] MEDS: Metoprolol XL (24 HR) Succ 50 MG TAB.ER.24H PO SCH (08:27)
[2019-07-28] MEDS: *HR* Rivaroxaban 10 MG TABLET PO SCH (08:31)
[2019-07-28] MEDS: Budesonide/Formoterol 160/4.5 1 PUFF INH IH SCH ×2 (09:44→20:51)
[2019-07-28] MEDS: Mirtazapine 15 MG TABLET PO SCH (20:50)
[2019-07-29] MEDS: Ipratropium 1 PUFF INHALER IH SCH ×4 (03:51→21:54)
[2019-07-29] MEDS: Azithromycin 250 MG TABLET PO SCH (09:26)
[2019-07-29] MEDS: Aspirin Enteric Coated 81 MG Tablet PO SCH (09:26)
[2019-07-29] MEDS: predniSONE 10 MG TABLET PO SCH (09:26)
[2019-07-29] MEDS: Metoprolol XL (24 HR) Succ 50 MG TAB.ER.24H PO SCH (09:26)
[2019-07-29] MEDS: PARoxetine 20 MG TABLET PO SCH (09:26)
[2019-07-29] MEDS: *HR* Rivaroxaban 10 MG TABLET PO SCH (09:26)
[2019-07-29] MEDS: Isosorbide MONOnitrate (24 HR) 60 MG TAB.ER.24H PO SCH (09:27)
[2019-07-29] MEDS: allopurinoL 100 MG TABLET PO SCH (09:27)
[2019-07-29] MEDS: Furosemide 20 MG TABLET PO SCH (09:28)
[2019-07-29] MEDS: Budesonide/Formoterol 160/4.5 1 PUFF INH IH SCH ×2 (09:47→21:54)
[2019-07-29] MEDS: Mirtazapine 15 MG TABLET PO SCH (20:28)
[2019-07-29] MEDS: Famotidine 20 MG TABLET PO SCH (20:28)
[2019-07-30] MEDS: Ipratropium 1 PUFF INHALER IH SCH ×4 (04:49→20:52)
[2019-07-30 06:04] LABS: Hematocrit 29.1 % (35.3-44.9); Mean Corpuscular HGB Conc 31.3 g/dL (31.6-35.5); Mean Corpuscular Hemoglobin 27.1 pg (28.0-33.3); Mean Corpuscular Volume 86.6 fL (83.0-100.0); Mean Platelet Volume 11.2 fL (9.4-12.4); Platelet Count 176 K/mcL (140-400); Red Blood Count 3.36 M/mcL (3.82-4.97); White Blood Count 8.5 K/mcL (4.3-11.1)
[2019-07-30 06:16] LABS: Hemoglobin 9.1 g/dL (11.5-15.4)
[2019-07-30 06:17] LABS: Alanine Aminotransferase 24 Units/L (7-52); Albumin 2.5 g/dL (3.5-5.7); Albumin/Globulin Ratio 1.1 (1.1-2.2); Alkaline Phosphatase 66 Units/L (34-104); Aspartate Amino Transferase 39 Units/L (13-39); BUN/Creatinine Ratio 18 (6-26); Bilirubin,Total 0.3 mg/dL (0.3-1.0); Blood Urea Nitrogen 18 mg/dL (8-23); Calcium 7.6 mg/dL (8.6-10.3); Carbon Dioxide 32 mEq/L (23-29); Chloride 102 mEq/L (98-107); Globulin 2.2 g/dL (2.4-3.5); Glucose 69 mg/dL (70-105); Magnesium 1.4 mg/dL (1.6-2.6); Osmolality,Calculated 286 (280-300); Potassium 4.3 mEq/L (3.5-5.1); Sodium 138 mEq/L (136-145); Total Protein 4.7 g/dL (6.4-8.9); Uric Acid 7.3 mg/dL (2.3-7.6); eGFR For African Americans > 60 (> 60); eGFR For Non-African Americans 54 (> 60)
[2019-07-30] MEDS: Metoprolol XL (24 HR) Succ 50 MG TAB.ER.24H PO SCH (08:25)
[2019-07-30] MEDS: Furosemide 20 MG TABLET PO SCH (08:25)
[2019-07-30] MEDS: allopurinoL 100 MG TABLET PO SCH (08:26)
[2019-07-30] MEDS: PARoxetine 20 MG TABLET PO SCH (08:26)
[2019-07-30] MEDS: predniSONE 10 MG TABLET PO SCH (08:27)
[2019-07-30] MEDS: Isosorbide MONOnitrate (24 HR) 60 MG TAB.ER.24H PO SCH (08:27)
[2019-07-30] MEDS: *HR* Rivaroxaban 10 MG TABLET PO SCH (08:27)
[2019-07-30] MEDS: Aspirin Enteric Coated 81 MG Tablet PO SCH (08:27)
[2019-07-30] MEDS: Azithromycin 250 MG TABLET PO SCH (08:27)
[2019-07-30] MEDS: Magnesium Oxide 400 MG TABLET PO SCH ×2 (08:34→20:29)
[2019-07-30 09:31] LABS: C-Reactive Protein < 5 mg/L (Less than 10)
[2019-07-30] MEDS: Budesonide/Formoterol 160/4.5 1 PUFF INH IH SCH ×2 (09:45→20:52)
[2019-07-30] MEDS: Mirtazapine 15 MG TABLET PO SCH (20:29)
[2019-07-30] MEDS: Famotidine 20 MG TABLET PO SCH (20:29)
[2019-07-31] MEDS: Ipratropium 1 PUFF INHALER IH SCH ×4 (04:00→21:37)
[2019-07-31] MEDS: Magnesium Oxide 400 MG TABLET PO SCH ×2 (08:14→21:42)
[2019-07-31] MEDS: PARoxetine 20 MG TABLET PO SCH (08:14)
[2019-07-31] MEDS: allopurinoL 100 MG TABLET PO SCH (08:14)
[2019-07-31] MEDS: Aspirin Enteric Coated 81 MG Tablet PO SCH (08:14)
[2019-07-31] MEDS: Furosemide 20 MG TABLET PO SCH ×2 (08:15→17:06)
[2019-07-31] MEDS: Isosorbide MONOnitrate (24 HR) 60 MG TAB.ER.24H PO SCH (08:15)
[2019-07-31] MEDS: predniSONE 10 MG TABLET PO SCH (08:15)
[2019-07-31] MEDS: Metoprolol XL (24 HR) Succ 50 MG TAB.ER.24H PO SCH (08:15)
[2019-07-31] MEDS: *HR* Rivaroxaban 10 MG TABLET PO SCH (08:15)
[2019-07-31] MEDS: Budesonide/Formoterol 160/4.5 1 PUFF INH IH SCH ×2 (08:51→21:38)
[2019-07-31] MEDS ORDERED: Furosemide 20 MG TABLET PO SCH (09:30)
[2019-07-31] MEDS: Famotidine 20 MG TABLET PO SCH (21:42)
[2019-07-31] MEDS: Mirtazapine 15 MG TABLET PO SCH (21:42)
[2019-08-01] MEDS: Ipratropium 1 PUFF INHALER IH SCH ×4 (04:27→21:58)
[2019-08-01] MEDS: *HR* Rivaroxaban 10 MG TABLET PO SCH (08:11)
[2019-08-01] MEDS: Isosorbide MONOnitrate (24 HR) 60 MG TAB.ER.24H PO SCH (08:11)
[2019-08-01] MEDS: Aspirin Enteric Coated 81 MG Tablet PO SCH (08:11)
[2019-08-01] MEDS: predniSONE 10 MG TABLET PO SCH (08:12)
[2019-08-01] MEDS: allopurinoL 100 MG TABLET PO SCH (08:12)
[2019-08-01] MEDS: PARoxetine 20 MG TABLET PO SCH (08:12)
[2019-08-01] MEDS: Magnesium Oxide 400 MG TABLET PO SCH ×2 (08:13→21:15)
[2019-08-01] MEDS: Furosemide 20 MG TABLET PO SCH ×2 (08:13→16:27)
[2019-08-01] MEDS: Metoprolol XL (24 HR) Succ 50 MG TAB.ER.24H PO SCH (08:13)
[2019-08-01] MEDS: Budesonide/Formoterol 160/4.5 1 PUFF INH IH SCH ×2 (09:20→21:58)
[2019-08-01] MEDS: Mirtazapine 15 MG TABLET PO SCH (21:16)
[2019-08-01] MEDS: Famotidine 20 MG TABLET PO SCH (21:16)
[2019-08-02] MEDS: Ipratropium 1 PUFF INHALER IH SCH ×4 (04:02→22:37)
[2019-08-02] MEDS: Isosorbide MONOnitrate (24 HR) 60 MG TAB.ER.24H PO SCH (08:58)
[2019-08-02] MEDS: Aspirin Enteric Coated 81 MG Tablet PO SCH (08:59)
[2019-08-02] MEDS: predniSONE 10 MG TABLET PO SCH (08:59)
[2019-08-02] MEDS: Furosemide 20 MG TABLET PO SCH ×2 (08:59→16:11)
[2019-08-02] MEDS: *HR* Rivaroxaban 10 MG TABLET PO SCH (08:59)
[2019-08-02] MEDS: PARoxetine 20 MG TABLET PO SCH (08:59)
[2019-08-02] MEDS: Magnesium Oxide 400 MG TABLET PO SCH ×2 (08:59→21:47)
[2019-08-02] MEDS: Metoprolol XL (24 HR) Succ 50 MG TAB.ER.24H PO SCH (08:59)
[2019-08-02] MEDS: allopurinoL 100 MG TABLET PO SCH (09:00)
[2019-08-02] MEDS: Budesonide/Formoterol 160/4.5 1 PUFF INH IH SCH ×2 (10:10→22:37)
[2019-08-02] MEDS: Mirtazapine 15 MG TABLET PO SCH (21:47)
[2019-08-02] MEDS: Famotidine 20 MG TABLET PO SCH (21:47)
[2019-08-03] MEDS: Ipratropium 1 PUFF INHALER IH SCH ×4 (04:56→21:55)
[2019-08-03] MEDS: allopurinoL 100 MG TABLET PO SCH (09:35)
[2019-08-03] MEDS: predniSONE 10 MG TABLET PO SCH (09:35)
[2019-08-03] MEDS: Magnesium Oxide 400 MG TABLET PO SCH ×2 (09:35→21:39)
[2019-08-03] MEDS: PARoxetine 20 MG TABLET PO SCH (09:35)
[2019-08-03] MEDS: Metoprolol XL (24 HR) Succ 50 MG TAB.ER.24H PO SCH (09:35)
[2019-08-03] MEDS: Furosemide 20 MG TABLET PO SCH ×2 (09:35→16:23)
[2019-08-03] MEDS: Aspirin Enteric Coated 81 MG Tablet PO SCH (09:35)
[2019-08-03] MEDS: Isosorbide MONOnitrate (24 HR) 60 MG TAB.ER.24H PO SCH (09:36)
[2019-08-03] MEDS: *HR* Rivaroxaban 10 MG TABLET PO SCH (09:36)
[2019-08-03] MEDS: Budesonide/Formoterol 160/4.5 1 PUFF INH IH SCH ×2 (09:36→21:54)
[2019-08-03] MEDS: Famotidine 20 MG TABLET PO SCH (21:39)
[2019-08-03] MEDS: Mirtazapine 15 MG TABLET PO SCH (21:39)
[2019-08-04] MEDS: Ipratropium 1 PUFF INHALER IH SCH ×4 (04:04→21:57)
[2019-08-04 05:49] LABS: Hematocrit 26.3 % (35.3-44.9); Hemoglobin 8.2 g/dL (11.5-15.4); Mean Corpuscular HGB Conc 31.2 g/dL (31.6-35.5); Mean Corpuscular Hemoglobin 27.1 pg (28.0-33.3); Mean Corpuscular Volume 86.8 fL (83.0-100.0); Mean Platelet Volume 12.1 fL (9.4-12.4); Platelet Count 178 K/mcL (140-400); Red Blood Count 3.03 M/mcL (3.82-4.97); Red Cell Distribution Width 17.7 % (11.5-14.5); White Blood Count 8.5 K/mcL (4.3-11.1)
[2019-08-04 06:06] LABS: BUN/Creatinine Ratio 16 (6-26); Blood Urea Nitrogen 15 mg/dL (8-23); Carbon Dioxide 32 mEq/L (23-29); Chloride 102 mEq/L (98-107); Glucose 100 mg/dL (70-105); Magnesium 1.7 mg/dL (1.6-2.6); Osmolality,Calculated 289 (280-300); Potassium 3.4 mEq/L (3.5-5.1); Sodium 139 mEq/L (136-145); eGFR For African Americans > 60 (> 60); eGFR For Non-African Americans 58 (> 60)
[2019-08-04] MEDS: allopurinoL 100 MG TABLET PO SCH (07:45)
[2019-08-04] MEDS: PARoxetine 20 MG TABLET PO SCH (07:45)
[2019-08-04] MEDS: Magnesium Oxide 400 MG TABLET PO SCH ×2 (07:45→20:58)
[2019-08-04] MEDS: *HR* Rivaroxaban 10 MG TABLET PO SCH (07:45)
[2019-08-04] MEDS: Isosorbide MONOnitrate (24 HR) 60 MG TAB.ER.24H PO SCH (07:45)
[2019-08-04] MEDS: Aspirin Enteric Coated 81 MG Tablet PO SCH (07:45)
[2019-08-04] MEDS: Furosemide 20 MG TABLET PO SCH ×2 (07:45→16:41)
[2019-08-04] MEDS: predniSONE 10 MG TABLET PO SCH (07:45)
[2019-08-04] MEDS: Metoprolol XL (24 HR) Succ 50 MG TAB.ER.24H PO SCH (07:45)
[2019-08-04] MEDS: Budesonide/Formoterol 160/4.5 1 PUFF INH IH SCH ×2 (10:19→21:57)
[2019-08-04] MEDS: Famotidine 20 MG TABLET PO SCH (20:59)
[2019-08-04] MEDS: Mirtazapine 15 MG TABLET PO SCH (20:59)
[2019-08-05] MEDS: Ipratropium 1 PUFF INHALER IH SCH ×4 (04:43→21:46)
[2019-08-05] MEDS: Furosemide 20 MG TABLET PO SCH ×2 (08:23→16:18)
[2019-08-05] MEDS: Isosorbide MONOnitrate (24 HR) 60 MG TAB.ER.24H PO SCH (08:23)
[2019-08-05] MEDS: allopurinoL 100 MG TABLET PO SCH (08:23)
[2019-08-05] MEDS: Aspirin Enteric Coated 81 MG Tablet PO SCH (08:23)
[2019-08-05] MEDS: Metoprolol XL (24 HR) Succ 50 MG TAB.ER.24H PO SCH (08:23)
[2019-08-05] MEDS: Magnesium Oxide 400 MG TABLET PO SCH ×2 (08:23→20:12)
[2019-08-05] MEDS: *HR* Rivaroxaban 10 MG TABLET PO SCH (08:23)
[2019-08-05] MEDS: PARoxetine 20 MG TABLET PO SCH (08:24)
[2019-08-05] MEDS: Budesonide/Formoterol 160/4.5 1 PUFF INH IH SCH ×2 (09:47→21:47)
[2019-08-05] MEDS: Famotidine 20 MG TABLET PO SCH (20:12)
[2019-08-05] MEDS: Mirtazapine 15 MG TABLET PO SCH (20:12)
[2019-08-06] MEDS: Ipratropium 1 PUFF INHALER IH SCH ×4 (04:13→22:20)
[2019-08-06] MEDS: Magnesium Oxide 400 MG TABLET PO SCH ×2 (09:30→20:11)
[2019-08-06] MEDS: Isosorbide MONOnitrate (24 HR) 60 MG TAB.ER.24H PO SCH (09:31)
[2019-08-06] MEDS: Furosemide 20 MG TABLET PO SCH ×2 (09:31→17:03)
[2019-08-06] MEDS: PARoxetine 20 MG TABLET PO SCH (09:31)
[2019-08-06] MEDS: Aspirin Enteric Coated 81 MG Tablet PO SCH (09:31)
[2019-08-06] MEDS: Metoprolol XL (24 HR) Succ 50 MG TAB.ER.24H PO SCH (09:32)
[2019-08-06] MEDS: *HR* Rivaroxaban 10 MG TABLET PO SCH (09:33)
[2019-08-06] MEDS: allopurinoL 100 MG TABLET PO SCH (09:33)
[2019-08-06] MEDS: Budesonide/Formoterol 160/4.5 1 PUFF INH IH SCH ×2 (10:31→22:20)
[2019-08-06] MEDS: Mirtazapine 15 MG TABLET PO SCH (20:11)
[2019-08-06] MEDS: Famotidine 20 MG TABLET PO SCH (20:11)
[2019-08-07] MEDS: Ipratropium 1 PUFF INHALER IH SCH ×4 (04:09→22:17)
[2019-08-07] MEDS: allopurinoL 100 MG TABLET PO SCH (08:21)
[2019-08-07] MEDS: Magnesium Oxide 400 MG TABLET PO SCH ×2 (08:21→21:56)
[2019-08-07] MEDS: Isosorbide MONOnitrate (24 HR) 60 MG TAB.ER.24H PO SCH (08:21)
[2019-08-07] MEDS: Aspirin Enteric Coated 81 MG Tablet PO SCH (08:21)
[2019-08-07] MEDS: *HR* Rivaroxaban 10 MG TABLET PO SCH (08:21)
[2019-08-07] MEDS: Metoprolol XL (24 HR) Succ 50 MG TAB.ER.24H PO SCH (08:21)
[2019-08-07] MEDS: PARoxetine 20 MG TABLET PO SCH (08:22)
[2019-08-07] MEDS: Furosemide 20 MG TABLET PO SCH ×2 (08:22→16:23)
[2019-08-07] MEDS: Budesonide/Formoterol 160/4.5 1 PUFF INH IH SCH ×2 (10:29→22:18)
[2019-08-07] MEDS: DilTIAZem CD (24hr) 120 MG CAP.ER.24H PO SCH (12:35)
[2019-08-07] MEDS: Mirtazapine 15 MG TABLET PO SCH (21:56)
[2019-08-07] MEDS: Famotidine 20 MG TABLET PO SCH (21:57)
[2019-08-08] MEDS: Ipratropium 1 PUFF INHALER IH SCH ×4 (04:47→22:08)
[2019-08-08] MEDS: allopurinoL 100 MG TABLET PO SCH (08:14)
[2019-08-08] MEDS: Aspirin Enteric Coated 81 MG Tablet PO SCH (08:14)
[2019-08-08] MEDS: Metoprolol XL (24 HR) Succ 50 MG TAB.ER.24H PO SCH (08:14)
[2019-08-08] MEDS: Isosorbide MONOnitrate (24 HR) 60 MG TAB.ER.24H PO SCH (08:14)
[2019-08-08] MEDS: Magnesium Oxide 400 MG TABLET PO SCH ×2 (08:14→21:06)
[2019-08-08] MEDS: PARoxetine 20 MG TABLET PO SCH (08:14)
[2019-08-08] MEDS: Furosemide 20 MG TABLET PO SCH ×2 (08:14→17:02)
[2019-08-08] MEDS: *HR* Rivaroxaban 10 MG TABLET PO SCH (08:14)
[2019-08-08] MEDS: predniSONE 10 MG TABLET PO SCH (08:14)
[2019-08-08] MEDS: DilTIAZem CD (24hr) 120 MG CAP.ER.24H PO SCH (08:14)
[2019-08-08] MEDS: Budesonide/Formoterol 160/4.5 1 PUFF INH IH SCH ×2 (09:21→22:08)
[2019-08-08 14:44] LABS: Basophils # 0.1 K/mcL (0.0-0.2); Basophils % 0.6 %; Eosinophils % 0.5 %; Hematocrit 28.1 % (35.3-44.9); Hemoglobin 8.7 g/dL (11.5-15.4); Immature Granulocytes % 0.5 % (0-4); Lymphocytes # 0.4 K/mcL (0.6-4.6); Lymphocytes % 5.2 %; Mean Corpuscular Volume 87.3 fL (83.0-100.0); Mean Platelet Volume 11.5 fL (9.4-12.4); Monocytes # 0.4 K/mcL (0.0-1.3); Monocytes % 4.7 %; Platelet Count 202 K/mcL (140-400); Red Blood Count 3.22 M/mcL (3.82-4.97); Segmented Neutrophils % 88.5 %; White Blood Count 7.9 K/mcL (4.3-11.1)
[2019-08-08 14:57] LABS: Calcium 8.2 mg/dL (8.6-10.3); Potassium 4.4 mEq/L (3.5-5.1)
[2019-08-08 18:21] LABS: Bilirubin,Urine Small (Negative); Blood,Urine Trace-lysed (Negative); Clarity,Urine Clear (Clear); Color,Urine Yellow (Yellow); Glucose,Urine (UA) Normal (Normal); Ketones,Urine Negative (Negative); Leukocyte Esterase,Urine Trace (Negative); Nitrite,Urine Negative (Negative); Protein,Urine 100 mg/dL (Neg-Trace); Specific Gravity,Urine 1.025 (1.010-1.025); Urobilinogen,Urine Normal (Normal)
[2019-08-08 18:30] LABS: Bacteria,Urine Moderate per hpf (None-Few); Granular Casts,Urine Few per lpf (None Seen); Hyaline Casts,Urine Moderate per lpf (None-Few); Squamous Epithelial Cell,Urine Moderate per lpf (None-Few)
[2019-08-08] MEDS: Mirtazapine 15 MG TABLET PO SCH (21:06)
[2019-08-08] MEDS: Famotidine 20 MG TABLET PO SCH (21:06)
[2019-08-09] MEDS: Ipratropium 1 PUFF INHALER IH SCH ×4 (04:59→22:17)
[2019-08-09 05:34] LABS: Basophils % 0.9 %; Eosinophils # 0.3 K/mcL (0.0-0.6); Eosinophils % 5.6 %; Hematocrit 24.5 % (35.3-44.9); Hemoglobin 7.6 g/dL (11.5-15.4); Immature Granulocytes % 0.4 % (0-4); Lymphocytes # 0.5 K/mcL (0.6-4.6); Lymphocytes % 11.7 %; Mean Corpuscular Volume 87.2 fL (83.0-100.0); Mean Platelet Volume 11.2 fL (9.4-12.4); Monocytes # 0.3 K/mcL (0.0-1.3); Monocytes % 6.9 %; Neutrophils # 3.5 K/mcL (1.6-8.9); Platelet Count 149 K/mcL (140-400); Red Blood Count 2.81 M/mcL (3.82-4.97); Red Cell Distribution Width 17.1 % (11.5-14.5); Segmented Neutrophils % 74.5 %; White Blood Count 4.6 K/mcL (4.3-11.1)
[2019-08-09 05:52] LABS: BUN/Creatinine Ratio 15 (6-26); Blood Urea Nitrogen 14 mg/dL (8-23); Calcium 8.3 mg/dL (8.6-10.3); Carbon Dioxide 31 mEq/L (23-29); Chloride 99 mEq/L (98-107); Glucose 102 mg/dL (70-105); Osmolality,Calculated 285 (280-300); Potassium 3.7 mEq/L (3.5-5.1); Sodium 137 mEq/L (136-145); eGFR For African Americans > 60 (> 60); eGFR For Non-African Americans 58 (> 60)
[2019-08-09] MEDS: *HR* Rivaroxaban 10 MG TABLET PO SCH ×2 (08:57→09:56)
[2019-08-09] MEDS: PARoxetine 20 MG TABLET PO SCH (09:32)
[2019-08-09] MEDS: Isosorbide MONOnitrate (24 HR) 60 MG TAB.ER.24H PO SCH (09:32)
[2019-08-09] MEDS: Furosemide 20 MG TABLET PO SCH ×2 (09:32→17:17)
[2019-08-09] MEDS: Aspirin Enteric Coated 81 MG Tablet PO SCH (09:32)
[2019-08-09] MEDS: Magnesium Oxide 400 MG TABLET PO SCH ×2 (09:32→21:07)
[2019-08-09] MEDS: allopurinoL 100 MG TABLET PO SCH (09:32)
[2019-08-09] MEDS: predniSONE 10 MG TABLET PO SCH (09:32)
[2019-08-09] MEDS: DilTIAZem CD (24hr) 120 MG CAP.ER.24H PO SCH (09:32)
[2019-08-09] MEDS: cephALEXin 500 MG CAPSULE PO SCH ×3 (09:33→21:08)
[2019-08-09] MEDS: Nystatin POWDER 30 GM BOTTLE TP SCH ×2 (09:33→21:08)
[2019-08-09] MEDS: Metoprolol XL (24 HR) Succ 50 MG TAB.ER.24H PO SCH (09:33)
[2019-08-09] MEDS: Budesonide/Formoterol 160/4.5 1 PUFF INH IH SCH ×2 (10:20→22:18)
[2019-08-09] MEDS: levoFLOXacin 750 MG TABLET PO SCH (15:26)
[2019-08-09] MEDS: Mirtazapine 15 MG TABLET PO SCH (21:07)
[2019-08-09] MEDS: Famotidine 20 MG TABLET PO SCH (21:07)
[2019-08-10] MEDS: Ipratropium 1 PUFF INHALER IH SCH ×4 (04:02→22:01)
[2019-08-10 07:46] LABS: BUN/Creatinine Ratio 12 (6-26); Blood Urea Nitrogen 12 mg/dL (8-23); Carbon Dioxide 33 mEq/L (23-29); Chloride 99 mEq/L (98-107); Glucose 86 mg/dL (70-105); Osmolality,Calculated 283 (280-300); Sodium 137 mEq/L (136-145); eGFR For African Americans > 60 (> 60); eGFR For Non-African Americans 54 (> 60)
[2019-08-10 07:54] LABS: Calcium 8.4 mg/dL (8.6-10.3)
[2019-08-10 07:55] LABS: Basophils # 0.1 K/mcL (0.0-0.2); Basophils % 1.2 %; Eosinophils # 0.3 K/mcL (0.0-0.6); Eosinophils % 5.7 %; Hematocrit 24.3 % (35.3-44.9); Hemoglobin 7.6 g/dL (11.5-15.4); Immature Granulocytes % 0.6 % (0-4); Lymphocytes # 0.6 K/mcL (0.6-4.6); Lymphocytes % 11.7 %; Mean Corpuscular HGB Conc 31.3 g/dL (31.6-35.5); Mean Corpuscular Hemoglobin 27.5 pg (28.0-33.3); Mean Platelet Volume 11.8 fL (9.4-12.4); Monocytes # 0.3 K/mcL (0.0-1.3); Monocytes % 6.7 %; Neutrophils # 3.7 K/mcL (1.6-8.9); Platelet Count 178 K/mcL (140-400); Red Blood Count 2.76 M/mcL (3.82-4.97); Segmented Neutrophils % 74.1 %; White Blood Count 4.9 K/mcL (4.3-11.1)
[2019-08-10] MEDS: Aspirin Enteric Coated 81 MG Tablet PO SCH (08:33)
[2019-08-10] MEDS: cephALEXin 500 MG CAPSULE PO SCH ×3 (08:33→22:00)
[2019-08-10] MEDS: PARoxetine 20 MG TABLET PO SCH (08:33)
[2019-08-10] MEDS: allopurinoL 100 MG TABLET PO SCH (08:33)
[2019-08-10] MEDS: Isosorbide MONOnitrate (24 HR) 60 MG TAB.ER.24H PO SCH (08:33)
[2019-08-10] MEDS: Magnesium Oxide 400 MG TABLET PO SCH ×2 (08:33→22:00)
[2019-08-10] MEDS: *HR* Rivaroxaban 10 MG TABLET PO SCH (08:33)
[2019-08-10] MEDS: levoFLOXacin 750 MG TABLET PO SCH (08:33)
[2019-08-10] MEDS: DilTIAZem CD (24hr) 120 MG CAP.ER.24H PO SCH (08:34)
[2019-08-10] MEDS: Furosemide 20 MG TABLET PO SCH ×2 (08:34→16:53)
[2019-08-10] MEDS: Metoprolol XL (24 HR) Succ 50 MG TAB.ER.24H PO SCH (08:34)
[2019-08-10] MEDS: predniSONE 10 MG TABLET PO SCH (08:34)
[2019-08-10] MEDS: Budesonide/Formoterol 160/4.5 1 PUFF INH IH SCH ×2 (10:12→22:03)
[2019-08-10] MEDS: Nystatin POWDER 30 GM BOTTLE TP SCH ×2 (11:59→22:01)
[2019-08-10] MEDS: Mirtazapine 15 MG TABLET PO SCH (22:00)
[2019-08-10] MEDS: Famotidine 20 MG TABLET PO SCH (22:00)
[2019-08-11] MEDS: Ipratropium 1 PUFF INHALER IH SCH ×4 (03:51→23:03)
[2019-08-11 05:10] LABS: Basophils # 0.1 K/mcL (0.0-0.2); Basophils % 1.2 %; Eosinophils # 0.2 K/mcL (0.0-0.6); Eosinophils % 5.4 %; Hematocrit 24.3 % (35.3-44.9); Hemoglobin 7.4 g/dL (11.5-15.4); Immature Granulocytes % 0.5 % (0-4); Lymphocytes # 0.6 K/mcL (0.6-4.6); Lymphocytes % 14.8 %; Mean Corpuscular HGB Conc 30.5 g/dL (31.6-35.5); Mean Corpuscular Hemoglobin 26.9 pg (28.0-33.3); Mean Corpuscular Volume 88.4 fL (83.0-100.0); Mean Platelet Volume 11.5 fL (9.4-12.4); Monocytes # 0.3 K/mcL (0.0-1.3); Monocytes % 7.8 %; Platelet Count 189 K/mcL (140-400); Red Blood Count 2.75 M/mcL (3.82-4.97); Red Cell Distribution Width 16.8 % (11.5-14.5); Segmented Neutrophils % 70.3 %; White Blood Count 4.3 K/mcL (4.3-11.1)
[2019-08-11] MEDS: Budesonide/Formoterol 160/4.5 1 PUFF INH IH SCH ×2 (08:53→23:03)
[2019-08-11] MEDS: Aspirin Enteric Coated 81 MG Tablet PO SCH (09:32)
[2019-08-11] MEDS: cephALEXin 500 MG CAPSULE PO SCH ×3 (09:32→21:08)
[2019-08-11] MEDS: allopurinoL 100 MG TABLET PO SCH (09:32)
[2019-08-11] MEDS: PARoxetine 20 MG TABLET PO SCH (09:32)
[2019-08-11] MEDS: predniSONE 10 MG TABLET PO SCH (09:32)
[2019-08-11] MEDS: levoFLOXacin 750 MG TABLET PO SCH (09:32)
[2019-08-11] MEDS: Furosemide 20 MG TABLET PO SCH ×2 (09:32→16:50)
[2019-08-11] MEDS: *HR* Rivaroxaban 10 MG TABLET PO SCH (09:33)
[2019-08-11] MEDS: Magnesium Oxide 400 MG TABLET PO SCH ×2 (09:33→21:08)
[2019-08-11] MEDS: Isosorbide MONOnitrate (24 HR) 60 MG TAB.ER.24H PO SCH (09:33)
[2019-08-11] MEDS: DilTIAZem CD (24hr) 120 MG CAP.ER.24H PO SCH (09:33)
[2019-08-11] MEDS: Metoprolol XL (24 HR) Succ 50 MG TAB.ER.24H PO SCH (09:33)
[2019-08-11] MEDS: Nystatin POWDER 30 GM BOTTLE TP SCH ×2 (11:15→21:08)
[2019-08-11] MEDS: Famotidine 20 MG TABLET PO SCH (21:08)
[2019-08-11] MEDS: Mirtazapine 15 MG TABLET PO SCH (21:08)
[2019-08-12] MEDS: Ipratropium 1 PUFF INHALER IH SCH ×3 (05:10→15:43)
[2019-08-12 05:41] LABS: Basophils # 0.1 K/mcL (0.0-0.2); Basophils % 1.2 %; Eosinophils # 0.3 K/mcL (0.0-0.6); Eosinophils % 5.1 %; Hematocrit 25.3 % (35.3-44.9); Hemoglobin 7.7 g/dL (11.5-15.4); Immature Granulocytes % 0.8 % (0-4); Lymphocytes # 0.7 K/mcL (0.6-4.6); Lymphocytes % 14.3 %; Mean Corpuscular HGB Conc 30.4 g/dL (31.6-35.5); Mean Corpuscular Hemoglobin 27.1 pg (28.0-33.3); Mean Corpuscular Volume 89.1 fL (83.0-100.0); Mean Platelet Volume 10.9 fL (9.4-12.4); Monocytes # 0.4 K/mcL (0.0-1.3); Neutrophils # 3.6 K/mcL (1.6-8.9); Platelet Count 229 K/mcL (140-400); Red Blood Count 2.84 M/mcL (3.82-4.97); Red Cell Distribution Width 16.8 % (11.5-14.5); Segmented Neutrophils % 70.6 %; White Blood Count 5.1 K/mcL (4.3-11.1)
[2019-08-12] MEDS: levoFLOXacin 750 MG TABLET PO SCH (08:42)
[2019-08-12] MEDS: predniSONE 10 MG TABLET PO SCH ×2 (08:43→16:37)
[2019-08-12] MEDS: Magnesium Oxide 400 MG TABLET PO SCH ×2 (08:43→20:24)
[2019-08-12] MEDS: allopurinoL 100 MG TABLET PO SCH (08:43)
[2019-08-12] MEDS: cephALEXin 500 MG CAPSULE PO SCH (08:43)
[2019-08-12] MEDS: Furosemide 20 MG TABLET PO SCH ×2 (08:43→16:37)
[2019-08-12] MEDS: Aspirin Enteric Coated 81 MG Tablet PO SCH (08:43)
[2019-08-12] MEDS: *HR* Rivaroxaban 10 MG TABLET PO SCH (08:43)
[2019-08-12] MEDS: DilTIAZem CD (24hr) 120 MG CAP.ER.24H PO SCH (08:43)
[2019-08-12] MEDS: Metoprolol XL (24 HR) Succ 50 MG TAB.ER.24H PO SCH (08:43)
[2019-08-12] MEDS: PARoxetine 20 MG TABLET PO SCH (08:43)
[2019-08-12] MEDS: Isosorbide MONOnitrate (24 HR) 60 MG TAB.ER.24H PO SCH (08:43)
[2019-08-12] MEDS: Budesonide/Formoterol 160/4.5 1 PUFF INH IH SCH ×2 (10:42→22:12)
[2019-08-12] MEDS ORDERED: Furosemide 20 MG TABLET PO ONE (13:18)
[2019-08-12] MEDS: Ipratropium/Albuterol Neb 3 ML IH SCH ×2 (16:06→22:12)
[2019-08-12] MEDS: Nystatin POWDER 30 GM BOTTLE TP SCH ×2 (16:27→20:24)
[2019-08-12] MEDS: Famotidine 20 MG TABLET PO SCH (20:24)
[2019-08-12] MEDS: Mirtazapine 15 MG TABLET PO SCH (20:24)
[2019-08-13] MEDS: Ipratropium/Albuterol Neb 3 ML IH SCH ×4 (04:01→22:00)
[2019-08-13] MEDS: DilTIAZem CD (24hr) 120 MG CAP.ER.24H PO SCH (08:07)
[2019-08-13] MEDS: allopurinoL 100 MG TABLET PO SCH (08:07)
[2019-08-13] MEDS: *HR* Rivaroxaban 10 MG TABLET PO SCH (08:07)
[2019-08-13] MEDS: levoFLOXacin 750 MG TABLET PO SCH (08:07)
[2019-08-13] MEDS: predniSONE 10 MG TABLET PO SCH ×2 (08:08)
[2019-08-13] MEDS: Magnesium Oxide 400 MG TABLET PO SCH ×2 (08:08→20:40)
[2019-08-13] MEDS: Aspirin Enteric Coated 81 MG Tablet PO SCH (08:08)
[2019-08-13] MEDS: PARoxetine 20 MG TABLET PO SCH (08:08)
[2019-08-13] MEDS: Furosemide 20 MG TABLET PO SCH ×2 (08:08→16:10)
[2019-08-13] MEDS: Metoprolol XL (24 HR) Succ 50 MG TAB.ER.24H PO SCH (08:09)
[2019-08-13] MEDS: Nystatin POWDER 30 GM BOTTLE TP SCH ×2 (08:09→20:40)
[2019-08-13] MEDS: Isosorbide MONOnitrate (24 HR) 60 MG TAB.ER.24H PO SCH (08:09)
[2019-08-13] MEDS: Budesonide/Formoterol 160/4.5 1 PUFF INH IH SCH ×2 (09:52→22:00)
[2019-08-13] MEDS: Mirtazapine 15 MG TABLET PO SCH (20:40)
[2019-08-13] MEDS: Famotidine 20 MG TABLET PO SCH (20:40)
[2019-08-14] MEDS: Ipratropium/Albuterol Neb 3 ML IH SCH ×4 (03:58→21:41)
[2019-08-14] MEDS: predniSONE 10 MG TABLET PO SCH ×2 (09:20→09:21)
[2019-08-14] MEDS: DilTIAZem CD (24hr) 120 MG CAP.ER.24H PO SCH (09:21)
[2019-08-14] MEDS: Aspirin Enteric Coated 81 MG Tablet PO SCH (09:21)
[2019-08-14] MEDS: Magnesium Oxide 400 MG TABLET PO SCH ×2 (09:21→21:21)
[2019-08-14] MEDS: Metoprolol XL (24 HR) Succ 50 MG TAB.ER.24H PO SCH (09:21)
[2019-08-14] MEDS: levoFLOXacin 750 MG TABLET PO SCH (09:21)
[2019-08-14] MEDS: Isosorbide MONOnitrate (24 HR) 60 MG TAB.ER.24H PO SCH (09:21)
[2019-08-14] MEDS: *HR* Rivaroxaban 10 MG TABLET PO SCH (09:21)
[2019-08-14] MEDS: PARoxetine 20 MG TABLET PO SCH (09:21)
[2019-08-14] MEDS: allopurinoL 100 MG TABLET PO SCH (09:21)
[2019-08-14] MEDS: Furosemide 20 MG TABLET PO SCH ×3 (09:22→17:35)
[2019-08-14] MEDS: Nystatin POWDER 30 GM BOTTLE TP SCH ×2 (09:22→21:22)
[2019-08-14] MEDS: Budesonide/Formoterol 160/4.5 1 PUFF INH IH SCH ×2 (10:59→21:40)
[2019-08-14] MEDS: Famotidine 20 MG TABLET PO SCH (21:21)
[2019-08-14] MEDS: Mirtazapine 15 MG TABLET PO SCH (21:21)
[2019-08-15] MEDS: Ipratropium/Albuterol Neb 3 ML IH SCH ×4 (04:12→22:12)
[2019-08-15] MEDS: predniSONE 10 MG TABLET PO SCH ×2 (08:18)
[2019-08-15] MEDS: DilTIAZem CD (24hr) 120 MG CAP.ER.24H PO SCH (08:18)
[2019-08-15] MEDS: PARoxetine 20 MG TABLET PO SCH (08:18)
[2019-08-15] MEDS: levoFLOXacin 750 MG TABLET PO SCH (08:18)
[2019-08-15] MEDS: Aspirin Enteric Coated 81 MG Tablet PO SCH (08:18)
[2019-08-15] MEDS: allopurinoL 100 MG TABLET PO SCH (08:19)
[2019-08-15] MEDS: Furosemide 20 MG TABLET PO SCH (08:19)
[2019-08-15] MEDS: Magnesium Oxide 400 MG TABLET PO SCH ×2 (08:19→21:36)
[2019-08-15] MEDS: *HR* Rivaroxaban 10 MG TABLET PO SCH (08:19)
[2019-08-15] MEDS: Isosorbide MONOnitrate (24 HR) 60 MG TAB.ER.24H PO SCH (08:19)
[2019-08-15] MEDS: Metoprolol XL (24 HR) Succ 50 MG TAB.ER.24H PO SCH (08:19)
[2019-08-15] MEDS: Budesonide/Formoterol 160/4.5 1 PUFF INH IH SCH ×2 (09:28→22:11)
[2019-08-15] MEDS: Nystatin POWDER 30 GM BOTTLE TP SCH ×2 (11:45→21:37)
[2019-08-15 16:07] LABS: Basophils % 0.1 %; Hematocrit 25.8 % (35.3-44.9); Immature Granulocytes % 1.5 % (0-4); Lymphocytes # 0.4 K/mcL (0.6-4.6); Lymphocytes % 5.7 %; Mean Corpuscular Hemoglobin 27.3 pg (28.0-33.3); Mean Corpuscular Volume 88.1 fL (83.0-100.0); Mean Platelet Volume 10.2 fL (9.4-12.4); Monocytes # 0.2 K/mcL (0.0-1.3); Monocytes % 2.8 %; Platelet Count 297 K/mcL (140-400); Red Blood Count 2.93 M/mcL (3.82-4.97); Red Cell Distribution Width 17.1 % (11.5-14.5); Segmented Neutrophils % 89.9 %; White Blood Count 6.7 K/mcL (4.3-11.1)
[2019-08-15 16:24] LABS: Calcium 8.6 mg/dL (8.6-10.3); Potassium 4.3 mEq/L (3.5-5.1)
[2019-08-15] MEDS: Famotidine 20 MG TABLET PO SCH (21:36)
[2019-08-15] MEDS: Mirtazapine 15 MG TABLET PO SCH (21:37)
[2019-08-16] MEDS: Ipratropium/Albuterol Neb 3 ML IH SCH ×4 (05:04→22:22)
[2019-08-16 05:20] LABS: Basophils % 0.2 %; Eosinophils # 0.1 K/mcL (0.0-0.6); Eosinophils % 1.1 %; Hematocrit 25.6 % (35.3-44.9); Hemoglobin 7.8 g/dL (11.5-15.4); Immature Granulocytes % 1.9 % (0-4); Lymphocytes # 0.9 K/mcL (0.6-4.6); Mean Corpuscular HGB Conc 30.5 g/dL (31.6-35.5); Mean Corpuscular Hemoglobin 26.7 pg (28.0-33.3); Mean Corpuscular Volume 87.7 fL (83.0-100.0); Mean Platelet Volume 10.1 fL (9.4-12.4); Monocytes # 0.5 K/mcL (0.0-1.3); Monocytes % 7.5 %; Neutrophils # 4.8 K/mcL (1.6-8.9); Platelet Count 257 K/mcL (140-400); Red Blood Count 2.92 M/mcL (3.82-4.97); Red Cell Distribution Width 16.9 % (11.5-14.5); Segmented Neutrophils % 75.3 %; White Blood Count 6.4 K/mcL (4.3-11.1)
[2019-08-16 05:57] LABS: BUN/Creatinine Ratio 21 (6-26); Blood Urea Nitrogen 21 mg/dL (8-23); Calcium 8.8 mg/dL (8.6-10.3); Carbon Dioxide 35 mEq/L (23-29); Chloride 100 mEq/L (98-107); Glucose 98 mg/dL (70-105); Osmolality,Calculated 295 (280-300); Potassium 4.1 mEq/L (3.5-5.1); Sodium 141 mEq/L (136-145); eGFR For African Americans > 60 (> 60); eGFR For Non-African Americans 54 (> 60)
[2019-08-16] MEDS: Furosemide 20 MG TABLET PO SCH (08:58)
[2019-08-16] MEDS: Isosorbide MONOnitrate (24 HR) 60 MG TAB.ER.24H PO SCH (08:59)
[2019-08-16] MEDS: predniSONE 10 MG TABLET PO SCH ×2 (08:59)
[2019-08-16] MEDS: Magnesium Oxide 400 MG TABLET PO SCH ×2 (08:59→22:09)
[2019-08-16] MEDS: Aspirin Enteric Coated 81 MG Tablet PO SCH (08:59)
[2019-08-16] MEDS: allopurinoL 100 MG TABLET PO SCH (09:00)
[2019-08-16] MEDS: Metoprolol XL (24 HR) Succ 50 MG TAB.ER.24H PO SCH (09:00)
[2019-08-16] MEDS: PARoxetine 20 MG TABLET PO SCH (09:00)
[2019-08-16] MEDS: DilTIAZem CD (24hr) 120 MG CAP.ER.24H PO SCH (09:00)
[2019-08-16] MEDS: levoFLOXacin 750 MG TABLET PO SCH (09:00)
[2019-08-16] MEDS: Nystatin POWDER 30 GM BOTTLE TP SCH ×2 (09:01→22:11)
[2019-08-16] MEDS: *HR* Rivaroxaban 10 MG TABLET PO SCH (09:01)
[2019-08-16] MEDS: Budesonide/Formoterol 160/4.5 1 PUFF INH IH SCH ×2 (09:41→22:22)
[2019-08-16 19:36] LABS: % Iron Saturation 12 % (15-50); Iron 42 mcg/dL (50-170); Transferrin 252 mg/dL (203-362)
[2019-08-16 20:02] LABS: Folate 4.3 ng/mL (3.0-16.0)
[2019-08-16] MEDS: Mirtazapine 15 MG TABLET PO SCH (22:10)
[2019-08-16] MEDS: Famotidine 20 MG TABLET PO SCH (22:10)
[2019-08-17] MEDS: Ipratropium/Albuterol Neb 3 ML IH SCH ×4 (05:52→22:13)
[2019-08-17] MEDS: PARoxetine 20 MG TABLET PO SCH (09:01)
[2019-08-17] MEDS: Aspirin Enteric Coated 81 MG Tablet PO SCH (09:01)
[2019-08-17] MEDS: Isosorbide MONOnitrate (24 HR) 60 MG TAB.ER.24H PO SCH (09:02)
[2019-08-17] MEDS: DilTIAZem CD (24hr) 120 MG CAP.ER.24H PO SCH (09:02)
[2019-08-17] MEDS: Magnesium Oxide 400 MG TABLET PO SCH ×2 (09:02→22:13)
[2019-08-17] MEDS: allopurinoL 100 MG TABLET PO SCH (09:02)
[2019-08-17] MEDS: predniSONE 10 MG TABLET PO SCH ×2 (09:02)
[2019-08-17] MEDS: *HR* Rivaroxaban 10 MG TABLET PO SCH (09:02)
[2019-08-17] MEDS: Metoprolol XL (24 HR) Succ 50 MG TAB.ER.24H PO SCH (09:03)
[2019-08-17] MEDS: Furosemide 20 MG TABLET PO SCH (09:03)
[2019-08-17] MEDS: Nystatin POWDER 30 GM BOTTLE TP SCH ×2 (09:04→22:13)
[2019-08-17] MEDS: Budesonide/Formoterol 160/4.5 1 PUFF INH IH SCH ×2 (10:48→22:13)
[2019-08-17] MEDS: Cyanocobalamin (B-12) 1,000 MCG TABLET PO SCH (11:42)
[2019-08-17] MEDS: Famotidine 20 MG TABLET PO SCH (22:13)
[2019-08-17] MEDS: Mirtazapine 15 MG TABLET PO SCH (22:13)
[2019-08-18] MEDS: Ipratropium/Albuterol Neb 3 ML IH SCH ×4 (05:19→22:14)
[2019-08-18] MEDS: Magnesium Oxide 400 MG TABLET PO SCH ×2 (08:35→21:23)
[2019-08-18] MEDS: Furosemide 20 MG TABLET PO SCH (08:35)
[2019-08-18] MEDS: *HR* Rivaroxaban 10 MG TABLET PO SCH (08:35)
[2019-08-18] MEDS: predniSONE 10 MG TABLET PO SCH (08:35)
[2019-08-18] MEDS: Metoprolol XL (24 HR) Succ 50 MG TAB.ER.24H PO SCH (08:35)
[2019-08-18] MEDS: Aspirin Enteric Coated 81 MG Tablet PO SCH (08:35)
[2019-08-18] MEDS: PARoxetine 20 MG TABLET PO SCH (08:35)
[2019-08-18] MEDS: DilTIAZem CD (24hr) 120 MG CAP.ER.24H PO SCH (08:36)
[2019-08-18] MEDS: allopurinoL 100 MG TABLET PO SCH (08:36)
[2019-08-18] MEDS: Isosorbide MONOnitrate (24 HR) 60 MG TAB.ER.24H PO SCH (08:36)
[2019-08-18] MEDS: Cyanocobalamin (B-12) 1,000 MCG TABLET PO SCH (08:36)
[2019-08-18] MEDS: Nystatin POWDER 30 GM BOTTLE TP SCH ×2 (08:38→21:23)
[2019-08-18] MEDS: Budesonide/Formoterol 160/4.5 1 PUFF INH IH SCH ×2 (08:48→22:15)
[2019-08-18] MEDS: Famotidine 20 MG TABLET PO SCH (21:23)
[2019-08-18] MEDS: Mirtazapine 15 MG TABLET PO SCH (21:23)
[2019-08-19] MEDS: Ipratropium/Albuterol Neb 3 ML IH SCH ×4 (04:03→21:52)
[2019-08-19] MEDS ORDERED: Nystatin POWDER 30 GM BOTTLE TP PRN (09:01)
[2019-08-19] MEDS: Budesonide/Formoterol 160/4.5 1 PUFF INH IH SCH ×2 (09:06→21:54)
[2019-08-19] MEDS: Furosemide 20 MG TABLET PO SCH ×3 (09:52→16:28)
[2019-08-19] MEDS: Isosorbide MONOnitrate (24 HR) 60 MG TAB.ER.24H PO SCH ×2 (09:52→12:05)
[2019-08-19] MEDS: DilTIAZem CD (24hr) 120 MG CAP.ER.24H PO SCH (09:56)
[2019-08-19] MEDS: allopurinoL 100 MG TABLET PO SCH (09:57)
[2019-08-19] MEDS: Metoprolol XL (24 HR) Succ 50 MG TAB.ER.24H PO SCH (09:57)
[2019-08-19] MEDS: Aspirin Enteric Coated 81 MG Tablet PO SCH (09:57)
[2019-08-19] MEDS: PARoxetine 20 MG TABLET PO SCH (09:57)
[2019-08-19] MEDS: *HR* Rivaroxaban 10 MG TABLET PO SCH (09:57)
[2019-08-19] MEDS: predniSONE 10 MG TABLET PO SCH (09:57)
[2019-08-19] MEDS: Cyanocobalamin (B-12) 1,000 MCG TABLET PO SCH (09:57)
[2019-08-19] MEDS: Magnesium Oxide 400 MG TABLET PO SCH ×2 (09:57→21:04)
[2019-08-19] MEDS: Nystatin POWDER 30 GM BOTTLE TP SCH (13:11)
[2019-08-19] MEDS: Iron Sucrose Complex 200 MG in 0.9 % Sodium Chloride 100 ML IVPB SCH (17:48)
[2019-08-19] MEDS: Mirtazapine 15 MG TABLET PO SCH (21:04)
[2019-08-19] MEDS: Famotidine 20 MG TABLET PO SCH (21:04)
[2019-08-20] MEDS: Ipratropium/Albuterol Neb 3 ML IH SCH ×2 (03:49→08:59)
[2019-08-20 05:44] LABS: Eosinophils % 1.3 %; Hematocrit 26.9 % (35.3-44.9); Hemoglobin 8.1 g/dL (11.5-15.4); Immature Granulocytes % 3.6 % (0-4); Mean Corpuscular HGB Conc 30.1 g/dL (31.6-35.5); Mean Corpuscular Hemoglobin 26.4 pg (28.0-33.3); Mean Corpuscular Volume 87.6 fL (83.0-100.0); Mean Platelet Volume 10.2 fL (9.4-12.4); Monocytes % 7.3 %; Platelet Count 221 K/mcL (140-400); Red Blood Count 3.07 M/mcL (3.82-4.97); Red Cell Distribution Width 17.1 % (11.5-14.5); Segmented Neutrophils % 78.5 %; White Blood Count 11.8 K/mcL (4.3-11.1)
[2019-08-20 05:45] LABS: Basophils % 0.3 %; Eosinophils # 0.2 K/mcL (0.0-0.6); Lymphocytes # 1.1 K/mcL (0.6-4.6); Monocytes # 0.9 K/mcL (0.0-1.3); Neutrophils # 9.3 K/mcL (1.6-8.9); Nucleated Red Blood Cells 0.3 /100 WBC (0)
[2019-08-20 05:59] LABS: BUN/Creatinine Ratio 21 (6-26); Blood Urea Nitrogen 21 mg/dL (8-23); Calcium 8.6 mg/dL (8.6-10.3); Carbon Dioxide 31 mEq/L (23-29); Chloride 100 mEq/L (98-107); Glucose 83 mg/dL (70-105); Osmolality,Calculated 288 (280-300); Potassium 4.1 mEq/L (3.5-5.1); Sodium 138 mEq/L (136-145); eGFR For African Americans > 60 (> 60); eGFR For Non-African Americans 53 (> 60)
[2019-08-20 07:46] VITALS: BP 117/78
[2019-08-20] MEDS: Aspirin Enteric Coated 81 MG Tablet PO SCH (08:36)
[2019-08-20] MEDS: Magnesium Oxide 400 MG TABLET PO SCH (08:37)
[2019-08-20] MEDS: Furosemide 20 MG TABLET PO SCH (08:37)
[2019-08-20] MEDS: Isosorbide MONOnitrate (24 HR) 60 MG TAB.ER.24H PO SCH (08:37)
[2019-08-20] MEDS: *HR* Rivaroxaban 10 MG TABLET PO SCH (08:37)
[2019-08-20] MEDS: PARoxetine 20 MG TABLET PO SCH (08:37)
[2019-08-20] MEDS: Metoprolol XL (24 HR) Succ 50 MG TAB.ER.24H PO SCH (08:37)
[2019-08-20] MEDS: allopurinoL 100 MG TABLET PO SCH (08:37)
[2019-08-20] MEDS: predniSONE 10 MG TABLET PO SCH (08:37)
[2019-08-20] MEDS: Cyanocobalamin (B-12) 1,000 MCG TABLET PO SCH (08:38)
[2019-08-20] MEDS: Budesonide/Formoterol 160/4.5 1 PUFF INH IH SCH (08:58)
[2019-08-20] MEDS: Iron Sucrose Complex 200 MG in 0.9 % Sodium Chloride 100 ML IVPB SCH (13:03)
== END 2019-08-20 15:20 | disposition home health service (06) | DRG 190 ==
LOC: INPGRE 07-24 16:29
PROVIDERS: ADMIT Family Medicine; ATTEND Family Medicine